=== PATIENT | female | born 2000 | race Caucasian/White ===

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

== ENCOUNTER 2022-04-12 19:33 | Emergency (ER) | payer OTHER ==
[~2022-04-12] VITALS: Ht 162.6 cm; Wt 50.1 kg
[~2022-04-12 19:33] MED LIST changes: +CLON-412 PO; +CLONI1TA PO; +HYDR-3363 PO; +LAMI25TA PO; +LAMO100T3 PO; -LIDOCAINE 1% MDV 20ML VIAL SQ; +MEDR1VL IM; +TRAZ-252 PO; +[UNRECOGNIZED DRUG - REMARK]
[2022-04-12] MEDS ORDERED: ADDE1TAB14 PO ×2 (21:28)
[2022-04-12] MEDS ORDERED: GABA-1171 PO (21:28)
[2022-04-12] MEDS ORDERED: ADDE20CA3 PO (21:28)
[2022-04-12] MEDS ORDERED: SPIR-10 PO (21:28)
[2022-04-12 22:14] LABS: BASO # 0.1 10^3/uL (0.0-0.2); EOS # 0.1 10^3/uL (0.0-0.5); HEMOGLOBIN 14.1 g/dl (12.0-15.5); LYMPH # 2.6 10^3/uL (1.5-5.0); LYMPH % 43.1 % (24.0-44.0); MEAN CORPUSCULAR HEMOGLOBIN 30.7 pg (27.0-33.0); MEAN CORPUSCULAR HGB CONC 32.8 g/dl (32.0-36.5); MEAN CORPUSCULAR VOLUME 93.7 fl (80.0-96.0); MONO # 0.4 10^3/uL (0.0-0.8); MONO % 6.4 % (2.0-8.0); NEUTROPHILS # 2.9 10^3/uL (1.5-8.5); NEUTROPHILS % 47.3 % (36.0-66.0); PLATELET COUNT, AUTOMATED 216 10^3/uL (150-450); RED BLOOD COUNT 4.59 10^6/uL (4.00-5.40); WHITE BLOOD COUNT 6.1 10^3/uL (4.0-10.0)
[2022-04-12 22:38] LABS: BLOOD UREA NITROGEN 8 MG/DL (9-23); CALCIUM LEVEL 9.2 MG/DL (8.5-10.1); CARBON DIOXIDE LEVEL 29 MMOL/L (20-31); CHLORIDE LEVEL 105 MMOL/L (98-107); CREATININE FOR GFR 0.89 MG/DL (0.55-1.30); GLOMERULAR FILTRATION RATE > 60.0 (>60); GLUCOSE, FASTING 104 MG/DL (60-100); SODIUM LEVEL 141 MMOL/L (136-145)
[2022-04-13 00:13] VITALS: BP 114/84
== END 2022-04-13 02:00 | disposition left against medical advice (07) ==
LOC: M ED 19:33
DX: Z53.21 Procedure and treatment not carried out due to patient leaving prior to being seen by health care provider (principal)

== ENCOUNTER 2022-04-13 14:50 | Emergency (ER) | payer OTHER ==
[~2022-04-13] VITALS: Ht 162.6 cm; Wt 50.0 kg
[2022-04-13 14:51] VITALS: BP 119/81
== END 2022-04-13 19:02 | disposition left against medical advice (07) ==
LOC: M ED 14:50
DX: R21 Rash and other nonspecific skin eruption (principal); R20.2 Paresthesia of skin; R07.89 Other chest pain; E28.2 Polycystic ovarian syndrome; R51.9 Headache, unspecified; Z88.1 Allergy status to other antibiotic agents; Z79.899 Other long term (current) drug therapy; Z53.9 Procedure and treatment not carried out, unspecified reason

== ENCOUNTER → 2022-04-13 | Outpatient (REF) | payer OTHER ==
[~2022-04-13] MED LIST changes: +ADDE1TAB14 PO; +ADDE20CA3 PO; +GABA-1171 PO; +SPIR-10 PO
== END ==
LOC: M LAB REF 14:29
PROVIDERS: ATTEND Otolaryngology
DX: B37.0 Candidal stomatitis (principal)

== ENCOUNTER → 2024-11-19 | Outpatient (REF) | LOC: M PLAIMG 13:30 | PROVIDERS: ATTEND Internal Medicine | DX: M54.9 Dorsalgia, unspecified (principal) ==